=== PATIENT | male | born 1965 | race Two or more races ===

== ENCOUNTER 2024-06-10 23:39 | Inpatient (IN) | payer BC, OTHER ==
[~2024-06-10] VITALS: Ht 185.4 cm; Wt 101.1 kg
[2024-06-10 23:41] VITALS: PULSE 71; RESP 19; O2SAT 96
[2024-06-10] MEDS: HEPARIN 1,000 UNITS/ml 1ML VIAL IV ONE (23:49)
[2024-06-10] MEDS: ONDANSETRON HCL 4 MG/2 ML VIAL IV ONE (23:50)
[2024-06-10] MEDS: MORPHINE SULFATE 4 MG/ML SYR/VIAL IV ONE (23:51)
[2024-06-10] MEDS: ASPirin 81 mg TAB PO ONE (23:53)
[2024-06-11] VITALS (11 sets, daily range): BP systolic 122–177; BP diastolic 57–117; PULSE 60–84; RESP 17–20; TEMP 98–98.4; O2SAT 93–97
[2024-06-11 00:07] LABS: Basophils # (auto) 0.1 10 ^3/uL (0-0.2); Basophils % (auto) 0.8 % (0.0-2.0); Eosinophils # (auto) 0.1 10 ^3/uL (0-0.8); Eosinophils % (auto) 1.5 % (0.0-7.0); Lymphocytes # (auto) 2.5 10 ^3/uL (0.4-5.4); Lymphocytes % (auto) 27.5 % (10.0-50.0); Mean Corpuscular Hemoglobin 32.5 pg (28.0-32.0); Mean Corpuscular Hgb Conc. 34.6 g/dL (32.0-36.0); Mean Corpuscular Volume 94.1 fL (80.0-100.0); Monocytes # (auto) 0.9 10 ^3/uL (0-1.3); Neutrophils # (auto) 5.5 10 ^3/uL (1.6-8.6); Neutrophils % (auto) 60.2 % (37.0-80.0); Nucleated Red Blood Cells % 0.2 %; Platelet Count (auto) 148 10^3/uL (140-450); Red Blood Cells 6.66 10^6/uL (4.5-5.90); Red Cell Distribution Width 14.4 % (11.8-14.3); White Blood Cell 9.1 10^3/uL (4.4-10.8)
[2024-06-11 00:09] LABS: Hematocrit 62.6 % (41.0-53.0)
[2024-06-11 00:13] LABS: Hemoglobin 21.7 g/dL (13.5-17.5)
[2024-06-11] MEDS: VERAPAMIL 2.5MG/ML INJ 2ML VIAL IV ONE (00:15)
[2024-06-11] MEDS: MIDAZOLAM HCL 2MG/2ML 2ml VIAL (1mg/ml) ONE (00:15)
[2024-06-11] MEDS: ANGIOMAX 250 MG VIAL IV ONE (00:15)
[2024-06-11] MEDS: HEPARIN SODIUM (PORCINE) 5000 UNITS/ML 1ML VIAL ONE (00:15)
[2024-06-11] MEDS: fentaNYL CITRATE 100 MCG/2 ML VL ONE (00:15)
[2024-06-11] MEDS: SODIUM CHL 0.9% 50 ML ONE (00:16)
[2024-06-11] MEDS: LIDOCAINE 2%HCL (LOCAL ANESTH.) INJ 20ML MDV ONE (00:16)
[2024-06-11 00:17] LABS: Alanine Aminotransferase 57 U/L (7-40); Alkaline Phosphatase 54 U/L (46-116); Anion Gap 4 (5-15); Aspartate Aminotransferase 33 U/L (13-40); BUN/Creatinine Ratio 14.2 (10.0-20.0); Blood Urea Nitrogen 19 mg/dL (9-23); Calcium 8.6 mg/dL (8.7-10.4); Carbon Dioxide 25 mmol/L (20-30); Chloride 107 mmol/L (98-107); Glucose 128 mg/dL (74-106); Magnesium 2.2 mg/dL (1.6-2.6); Potassium 4.5 mmol/L (3.5-5.1); Sodium 136 mmol/L (136-145)
[2024-06-11 00:18] LABS: Bilirubin, Total 0.6 mg/dL (0.2-1.0); Total Protein 6.5 g/dL (5.7-8.2)
[2024-06-11] MEDS: IODIXANOL 320MG/ML 100ML BTL IV ONE (00:44)
[2024-06-11] MEDS: CLOPIDOGREL BISULFATE 75 MG TAB ONE ×2 (01:21)
[2024-06-11] MEDS: hydrALAZINE HCL 20 MG/ML VL ONE (01:51)
[2024-06-11] MEDS: hydrALAZINE HCL 20 MG/ML VL IV ONE (01:51)
[2024-06-11] MEDS ORDERED: NITROGLYCERIN 0.4 MG SL TAB SL PRN (02:00)
[2024-06-11] MEDS ORDERED: MORPHINE SULFATE INJ 2 MG/ml SYRG IV PRN (02:00)
[2024-06-11] MEDS ORDERED: hydrALAZINE HCL 20 MG/ML VL IV PRN (08:15)
[2024-06-11 08:57] LABS: Basophils # (auto) 0.1 10 ^3/uL (0-0.2); Basophils % (auto) 0.7 % (0.0-2.0); Eosinophils # (auto) 0 10 ^3/uL (0-0.8); Eosinophils % (auto) 0.4 % (0.0-7.0); Monocytes # (auto) 0.9 10 ^3/uL (0-1.3)
[2024-06-11 09:20] LABS: Lymphocytes # (auto) 1.3 10 ^3/uL (0.4-5.4); Lymphocytes % (auto) 13.7 % (10.0-50.0); Mean Corpuscular Hgb Conc. 34.4 g/dL (32.0-36.0); Monocytes % (auto) 9.6 % (0.0-12.0); Neutrophils # (auto) 7.3 10 ^3/uL (1.6-8.6); Neutrophils % (auto) 75.6 % (37.0-80.0); Nucleated Red Blood Cells % 0.3 %; Platelet Count (auto) 142 10^3/uL (140-450); Red Cell Distribution Width 14.6 % (11.8-14.3); White Blood Cell 9.7 10^3/uL (4.4-10.8)
[2024-06-11 09:21] LABS: Hematocrit 63.2 % (41.0-53.0)
[2024-06-11 09:22] LABS: Hemoglobin 21.8 g/dL (13.5-17.5)
[2024-06-11 09:24] LABS: Alanine Aminotransferase 89 U/L (7-40); Albumin 4.1 g/dL (3.2-4.8); Alkaline Phosphatase 55 U/L (46-116); Anion Gap 5 (5-15); Aspartate Aminotransferase 349 U/L (13-40); Bilirubin, Total 0.9 mg/dL (0.2-1.0); Blood Urea Nitrogen 17 mg/dL (9-23); Calcium 8.9 mg/dL (8.7-10.4); Carbon Dioxide 23 mmol/L (20-30); Chloride 106 mmol/L (98-107); Glucose 110 mg/dL (74-106); Potassium 4.3 mmol/L (3.5-5.1); Sodium 134 mmol/L (136-145); Total Protein 6.8 g/dL (5.7-8.2)
[2024-06-11] MEDS: ASPirin 81 mg TAB PO SCH (09:55)
[2024-06-11] MEDS: CLOPIDOGREL BISULFATE 75 MG TAB PO SCH (09:56)
[2024-06-11] MEDS: LISINOPRIL 5 MG TAB PO SCH (09:57)
[2024-06-11] MEDS: METOPROLOL SUCCINATE XL 50 MG TAB PO SCH (09:58)
[2024-06-11] MEDS ORDERED: NIFEdipine ER 30 MG TAB PO ONE (10:00)
[2024-06-11] MEDS: NICOTINE 14 MG/24HR TOPICAL PATCH TD SCH (10:00)
[2024-06-11 12:32] LABS: Magnesium 2.2 mg/dL (1.6-2.6)
[2024-06-11] MEDS ORDERED: ATORVASTATIN 20 MG TAB PO SCH (22:00)
[2024-06-11] MEDS: ATORVASTATIN 20 MG TAB PO SCH (22:21)
[2024-06-12] VITALS (7 sets, daily range): BP systolic 116–128; BP diastolic 62–88; PULSE 56–63; RESP 18–19; TEMP 36.6; O2SAT 96–98
[2024-06-12 00:39] LABS: Urine Bacteria FEW /hpf (None Seen); Urine Blood Negative /uL (Negative); Urine Clarity Clear (Clear); Urine Color Light-Yellow (Yellow); Urine Protein, UAD TRACE (Negative); Urine Specific Gravity 1.019 (1.001-1.035); Urine Urobilinogen Normal (Negative); Urine WBC 4 /hpf (0 - 3); Urine pH 5.5 (5.0-9.0)
[2024-06-12 05:51] LABS: Basophils # (auto) 0.1 10 ^3/uL (0-0.2); Eosinophils # (auto) 0.1 10 ^3/uL (0-0.8); Lymphocytes # (auto) 1.9 10 ^3/uL (0.4-5.4); Monocytes # (auto) 1.1 10 ^3/uL (0-1.3)
[2024-06-12 05:57] LABS: Basophils % (auto) 0.6 % (0.0-2.0); Eosinophils % (auto) 1.5 % (0.0-7.0); Lymphocytes % (auto) 19.9 % (10.0-50.0); Mean Corpuscular Hemoglobin 32.8 pg (28.0-32.0); Mean Corpuscular Hgb Conc. 34.9 g/dL (32.0-36.0); Mean Corpuscular Volume 93.8 fL (80.0-100.0); Monocytes % (auto) 12.2 % (0.0-12.0); Neutrophils # (auto) 6.2 10 ^3/uL (1.6-8.6); Neutrophils % (auto) 65.8 % (37.0-80.0); Nucleated Red Blood Cells % 0.3 %; Platelet Count (auto) 142 10^3/uL (140-450); Red Blood Cells 6.79 10^6/uL (4.5-5.90); Red Cell Distribution Width 14.8 % (11.8-14.3); White Blood Cell 9.4 10^3/uL (4.4-10.8)
[2024-06-12 06:07] LABS: Alanine Aminotransferase 76 U/L (7-40); Albumin 4.2 g/dL (3.2-4.8); Alkaline Phosphatase 53 U/L (46-116); Anion Gap 1 (5-15); Aspartate Aminotransferase 152 U/L (13-40); Blood Urea Nitrogen 14 mg/dL (9-23); Calcium 9.3 mg/dL (8.7-10.4); Carbon Dioxide 30 mmol/L (20-30); Chloride 102 mmol/L (98-107); Glucose 98 mg/dL (74-106); Potassium 4.7 mmol/L (3.5-5.1); Sodium 133 mmol/L (136-145)
[2024-06-12 06:08] LABS: Hematocrit 63.6 % (41.0-53.0)
[2024-06-12 06:09] LABS: Bilirubin, Total 1.3 mg/dL (0.2-1.0); Hemoglobin 22.2 g/dL (13.5-17.5); Total Protein 6.7 g/dL (5.7-8.2)
[2024-06-12 06:31] LABS: Platelet Estimate Adequate
[2024-06-12 06:35] LABS: Giant Platelets Few; Large Platelets FEW
[2024-06-12] MEDS: SODIUM CHLORIDE 0.9% 1,000 ML IV ONE (12:38)
[2024-06-12] MEDS ORDERED: OLME20TA53 PO (13:29)
[2024-06-12] MEDS ORDERED: FENO145T27 PO (13:29)
[2024-06-12 14:40] LABS: COVID19 ANTIGEN SOFIA FIA NEGATIVE (NEGATIVE)
[2024-06-12] MEDS ORDERED: METO-6 PO (16:30)
[2024-06-12] MEDS ORDERED: ASPI-325 PO (16:30)
[2024-06-12] MEDS ORDERED: ATOR20TA50 PO (16:30)
[2024-06-12] MEDS ORDERED: CLOP75TA70 PO (16:30)
[2024-06-12 17:04] LABS: Urine Bacteria None Seen /hpf (None Seen)
[2024-06-12 17:21] LABS: Amphetamine Screen, Urine Neg (NEGATIVE); Barbiturate Scree,Urine Neg (NEGATIVE); Benzodiazephine Screen, Urine Neg (NEGATIVE); Cannabinoid Screen, Urine Neg (NEGATIVE); Cocaine Screen, Urine Neg (NEGATIVE); Opiate Scree,Urine Neg (NEGATIVE); Phencyclidine Screen, Urine Neg (NEGATIVE)
[2024-06-12 17:33] LABS: Urine Blood Negative /uL (Negative); Urine Clarity Clear (Clear); Urine Color Yellow (Yellow); Urine Mucus FEW (None Seen); Urine Protein, UAD TRACE (Negative); Urine Specific Gravity 1.021 (1.001-1.035); Urine Urobilinogen Normal (Negative); Urine WBC 2 /hpf (0 - 3)
[2024-06-13 12:06] LABS: Anti-Nuclear Antibody Direct Negative (Negative)
[2024-06-16 11:07] LABS: Erythropoietin 15.7 mIU/mL (2.6-18.5)
== END 2024-06-12 19:20 | disposition home or self-care (01) | DRG 321 ==
LOC: EDBD 23:39 → ER 23:39 → TELE 06-11 01:56 → TELE-CENTR 06-11 02:05
PROVIDERS: ADMIT Student in an Organized Health Care Education/Training Program; ATTEND Nurse Practitioner Acute Care
PROC: 027135Z Dilation of Coronary Artery, Two Arteries with Two Drug-eluting Intraluminal Devices, Percutaneous Approach (ICD-10-PCS; principal; 2024-06-11)
PROC: 4A023N7 Measurement of Cardiac Sampling and Pressure, Left Heart, Percutaneous Approach (ICD-10-PCS; 2024-06-11)
PROC: B2111ZZ Fluoroscopy of Multiple Coronary Arteries using Low Osmolar Contrast (ICD-10-PCS; 2024-06-11)
DX: I21.09 ST elevation (STEMI) myocardial infarction involving other coronary artery of anterior wall (principal); I50.31 Acute diastolic (congestive) heart failure; I47.20 Ventricular tachycardia, unspecified; D69.6 Thrombocytopenia, unspecified; I11.0 Hypertensive heart disease with heart failure; I25.10 Atherosclerotic heart disease of native coronary artery without angina pectoris; D75.1 Secondary polycythemia; E78.00 Pure hypercholesterolemia, unspecified; E66.9 Obesity, unspecified; F17.200 Nicotine dependence, unspecified, uncomplicated; Z79.899 Other long term (current) drug therapy; Z79.82 Long term (current) use of aspirin; Z79.02 Long term (current) use of antithrombotics/antiplatelets; Z68.29 Body mass index [BMI] 29.0-29.9, adult
CPT/HCPCS: 36415; 80053; 83735; 84484; 86850; 86900; 86901; 92928; 92941; 93458; J1644; J2270; J2405; 36600; 71045; 76700; 80061; 80307; 81001; 82550; 82668; 82805; 83036; 83880; 84443; 85025; 86038; 87426; 93005; 93306; 99152; 99195; C1874; G0378; J2250; Q9967